=== PATIENT | male | born 1960 | race Caucasian/White ===

== ENCOUNTER 2018-09-20 19:17 | Emergency (ER) | payer SELFPAY ==
[~2018-09-20] VITALS: Ht 175.3 cm; Wt 69.9 kg
[2018-09-20 19:26] VITALS: Ht 175.3 cm; Wt 69.9 kg
[2018-09-20 20:35] LABS: PLATELET COUNT 182 x10^3mcL (130-400); RED CELL DISTRIBUTION WIDTH 13.1 % (11.5-14.5)
[2018-09-20 20:41] LABS: CALCIUM 9.2 mg/dL (8.5-10.1); CARBON DIOXIDE 22.9 mmol/L (21-32); CHLORIDE SERUM 100 mmol/L (98-107); CREATININE SERUM 1.6 mg/dL (0.7-1.3); GFR1 47 mL/min; GLUCOSE SERUM 135 mg/dL (74-106); POTASSIUM SERUM 3.1 mmol/L (3.5-5.1); SODIUM SERUM 134 mmol/L (136-145)
[2018-09-20 20:46] LABS: ALKALINE PHOSPHATASE 76 U/L (46-116); ALT/SGPT 20 U/L (16-63); AST/SGOT 17 U/L (15-37); BAND NEUTROPHIL 9 % (0-10); BILIRUBIN TOTAL 0.89 mg/dL (0.20-1.00); LIPASE 67 IU/L (73-393); MONOCYTE 2 % (0-7); SEGMENTED NEUTROPHILS 84 % (37-75); TOTAL PROTEIN, SERUM 7.7 g/dL (6.4-8.2)
[2018-09-20 20:47] LABS: PLATELET MORPHOLOGY PLATELETS NORMAL; rbc morphology (normal/abnorm) NORMAL (NORMAL)
[2018-09-20 20:48] LABS: ALBUMIN 2.7 g/dL (3.4-5.0)
[2018-09-20 21:49] LABS: UA SPECIFIC GRAVITY >=1.030 (1.005-1.035); microscopic required? YES; urine erythrocyte 3+ (NEGATIVE)
[2018-09-21 01:09] VITALS: BP 117/74
== END 2018-09-21 01:09 | disposition home or self-care (01) ==
LOC: ED 19:17
PROVIDERS: Emergency Medicine
DX: J18.1 Lobar pneumonia, unspecified organism (principal); N39.0 Urinary tract infection, site not specified; E86.0 Dehydration
CPT/HCPCS: G0480; J0456; J0696; J2405; J7030; J7050; Q0092